=== PATIENT | male | born 1935 | race Caucasian/White ===

== ENCOUNTER 2017-02-08 15:54 | Emergency (ER) | payer OTHER ==
[2017-02-08 16:25] VITALS: BP 150/81; PULSE 71; TEMP 97.8; BMI 24.7
[2017-02-08] MEDS ORDERED: ACETAMINOPHEN 325 MG TABLET (FP) PO ONE (16:31)
[2017-02-08] MEDS ORDERED: ACETAMINOPHEN 325 MG TABLET (FP) ONE (16:32)
[2017-02-08] MEDS ORDERED: DIPHTH,PERTUSS(ACELL),TET 0.5 ML DISP.SYRIN IM ONE (16:33)
--- NOTE | 2017-02-08 17:17 | PDOC ---
History of Present Illness - History of Present Illness Initial Comments: 02/08/17 17:37 The patient is a 81 year old male, with significant past medical history of HLD , HTN, and taking 81 mg aspirin daily, who presents to the emergency department with multiple abrasions to his face, hands, and right knee s/p mechanical fall walking up the front steps to his house this afternoon. The patient denies losing consciousness. He reports being ambulatory after the fall and states his family members were present during the fall. He presents with abrasions on his nose, left cheek, bilateral hands and right knee. He denies any significant pain or tenderness to his knees and hands. He denies any headache, or dizziness. The patient states his nose was bleeding momentarily after the fall. He reports pain to the bridge of his nose, as well as, a small laceration with active bleeding now. He denies chest pain, shortness of breath, headache and dizziness. He denies fever, chills, nausea, vomit, diarrhea and constipation. He denies dysuria, frequency, urgency and hematuria. Allergies: penicillins <Aarti English - Last Filed: 02/08/17 17:36> <Nathaniel Aguilera - Last Filed: 02/08/17 18:05> - General Chief Complaint: Injury Stated Complaint: FELL UPSTAIRS, NOSE INJURY Time Seen by Provider: 02/08/17 16:18 Past History <Aarti English - Last Filed: 02/08/17 17:36> - Past Medical History COPD: No HTN: Yes Hypercholesterolemia: Yes - Surgical History Appendectomy: Yes Cholecystectomy: Yes - Suicide/Smoking/Psychosocial Hx Smoking History: Never smoked Have you smoked in the past 12 months: No Information on smoking cessation initiated: No Hx Alcohol Use: No Drug/Substance Use Hx: No Substance Use Type: None <Nathaniel Aguilera - Last Filed: 02/08/17 18:05> - Past Medical History Allergies/Adverse Reactions: Allergies Allergy/AdvReac Type Severity Reaction Status Date / Time amoxicillin trihydrate Allergy Verified 02/08/17 15:55 [From Augmentin] potassium clavulanate Allergy Verified 02/08/17 15:55 [From Augmentin] Home Medications: Ambulatory Orders Amlodipine Besylate [Norvasc -] 15 mg PO DAILY 03/08/16 Aspirin [ASA -] 81 mg PO DAILY 03/08/16 Atorvastatin Ca [Lipitor] 5 mg PO HS 03/08/16 Review of Systems - Review of Systems Able to Perform ROS?: Yes Comments:: 02/08/17 17:37 CONSTITUTIONAL: Absent: fever, chills, diaphoresis, generalized weakness, malaise, loss of appetite HEENT: (+) nasal bleeding, pain and laceration to bridge of nose. Absent: rhinorrhea, nasal congestion, throat pain, throat swelling, difficulty swallowing, mouth swelling, ear pain, eye pain, visual Changes CARDIOVASCULAR: Absent: chest pain, syncope, palpitations, irregular heart rate, lightheadedness , peripheral edema RESPIRATORY: Absent: cough, shortness of breath, dyspnea with exertion, orthopnea, wheezing, stridor, hemoptysis GASTROINTESTINAL: Absent: abdominal pain, abdominal distension, nausea, vomiting, diarrhea, constipation, melena, hematochezia GENITOURINARY: Absent: dysuria, frequency, urgency, hesitancy, hematuria, flank pain, genital pain MUSCULOSKELETAL: Absent: myalgia, arthralgia, joint swelling SKIN: (+)abrasions to nose, hands, and knee. Absent: rash, itching, pallor HEMATOLOGIC/IMMUNOLOGIC: Absent: easy bleeding, easy bruising, lymphadenopathy, frequent infections ENDOCRINE: Absent: unexplained weight gain, unexplained weight loss, heat intolerance, cold intolerance NEUROLOGIC: Absent: headache, focal weakness or paresthesia, dizziness, unsteady gait, seizure, mental status changes, bladder or bowel incontinence PSYCHIATRIC: Absent: anxiety, depression, suicidal or homicidal ideation, hallucinations <Aarti English - Last Filed: 02/08/17 17:36> *Physical Exam - Vital Signs Last Vital Signs Temp Pulse Resp BP Pulse Ox 97.8 F 71 20 150/81 97 02/08/17 15:55 02/08/17 15:55 02/08/17 15:55 02/08/17 15:55 02/08/17 15:55 - Physical Exam Comments: 02/08/17 17:37 GENERAL: Well developed, well nourished. Awake and alert. No acute distress. HEENT: (+) There is swelling and tenderness of the bridge, 1cm longitudinal laceration over the bridge. Slight oozing from both nostrils without a septal hematoma. No hematoma or head injury. Normocephalic, PERRLA 4mm bilaterally, EOMI. No conjunctival pallor. Sclera are non-icteric. fundi sharp with good venous pulsations bilaterally. Moist mucous membranes. Oropharynx is clear. No dental trauma or trauma to the inside of mouth. NECK: Supple. Full ROM without pain . No palpable or bony deformities of the vertebral bodies. No JVD. Carotid pulses 2+ and symmetric, without bruits. No thyromegaly. No lymphadenopathy. CARDIOVASCULAR: Regular rate and rhythm. No murmurs, rubs, or gallops. Distal pulses are 2+ and symmetric. PULMONARY: No evidence of respiratory distress. Lungs clear to auscultation bilaterally. No wheezing, rales or rhonchi. ABDOMINAL: Soft. Non-tender. Non-distended. No rebound or guarding. No organomegaly. Normoactive bowel sounds. MUSCULOSKELETAL Normal range of motion at all joints. No bony deformities or tenderness. No CVA tenderness. EXTREMITIES: No cyanosis. No clubbing. No edema. No calf tenderness. SKIN: (+) Superficial abrasions of left hand and right knee without any sign of fracture including swelling or deformity. Warm and dry. Normal capillary refill. No rashes. No jaundice. NEUROLOGICAL: Alert, awake, appropriate. Cranial nerves 2-12 intact. No motor deficits in the upper extremities and lower extremities. Normoreflexic in the upper and lower extremities. Normal speech. Gait is normal without ataxia. PSYCHIATRIC: Cooperative. Good eye contact. Appropriate mood and affect. <Aarti English - Last Filed: 02/08/17 17:36> - Vital Signs Last Vital Signs Temp Pulse Resp BP Pulse Ox 97.8 F 71 20 150/81 97 02/08/17 15:55 02/08/17 15:55 02/08/17 15:55 02/08/17 15:55 02/08/17 15:55 <Nathaniel Aguilera - Last Filed: 02/08/17 18:05> ED Treatment Course - Medications Given in the ED: ED Medications Discontinued Medications Generic Name Dose Route Start Last Admin Trade Name Freq PRN Reason Stop Dose Admin Acetaminophen 650 mg 02/08/17 16:31 02/08/17 16:33 Tylenol - PO 02/08/17 16:32 650 mg ONCE ONE Administration <Aarti English - Last Filed: 02/08/17 17:36> - RADIOLOGY Radiology Studies Ordered: Category Date Time Status NASAL BONES [RAD] Stat Radiology 02/08/17 16:32 Ordered - Medications Given in the ED: ED Medications Discontinued Medications Generic Name Dose Route Start Last Admin Trade Name Winter PRN Reason Stop Dose Admin Acetaminophen 650 mg 02/08/17 16:31 02/08/17 16:33 Tylenol - PO 02/08/17 16:32 650 mg ONCE ONE Administration <Nathaniel Aguilera - Last Filed: 02/08/17 18:05> *DC/Admit/Observation/Transfer - Attestations Scribe Attestion: 02/08/17 17:37 Documentation prepared by Aarti English, acting as medical customer service representative for Nathaniel Mckeon MD <Aarti English - Last Filed: 02/08/17 17:36> - Discharge Dispostion Admit: No <Nathaniel Aguilera - Last Filed: 02/08/17 18:05> Diagnosis at time of Disposition: Fractured nasal bones Facial laceration Qualifiers: Encounter type: initial encounter Qualified Code(s): S01.81XA - Laceration without foreign body of other part of head, initial encounter - Discharge Dispostion Disposition: HOME Condition at time of disposition: Improved - Patient Instructions Printed Discharge Instructions: DI for Laceration Repair With Dermabond, Nose Fracture Additional Instructions: There is a minor fracture of one of the bones in the nose. It does not appear displaced and should heal properly on its own. However, once the swelling goes down, if there is a noticeable change in the appearance of the nose, and it is not acceptable, he should consult an ENT specialist for further evaluation and possible surgical correction. Otherwise, see primary physician in 2-3 days for reexamination of the injuries to insure proper healing.
== END 2017-02-08 18:25 | disposition home or self-care (01) ==
LOC: FER 15:54
PROC: 3E0234Z Introduction of Serum, Toxoid and Vaccine into Muscle, Percutaneous Approach (ICD-10-PCS; principal; 2017-02-08)
DX: S02.2XXA Fracture of nasal bones, initial encounter for closed fracture (principal); W10.9XXA Fall (on) (from) unspecified stairs and steps, initial encounter; Y93.89 Activity, other specified; Y92.008 Other place in unspecified non-institutional (private) residence as the place of occurrence of the external cause; I10 Essential (primary) hypertension; E78.00 Pure hypercholesterolemia, unspecified
CPT/HCPCS: 70160-TC; 90715; 99282-25